=== PATIENT | male | born 1985 | race Caucasian/White ===

== ENCOUNTER 2020-11-27 10:00 | Emergency (ER) | payer BC ==
--- NOTE | 2020-11-27 10:32 | EDM.PDOC ---
ED HPI GENERAL MEDICAL PROBLEM - General Chief Complaint: Chest Pain Stated Complaint: BURNING IN CHEST Time Seen by Provider: 11/27/20 10:20 Source of Information: Reports: Patient History Limitations: Reports: No Limitations - History of Present Illness INITIAL COMMENTS - FREE TEXT/NARRATIVE: 35 year old male with PMH of HTN, and hyperlipidemia presents to ED with chest pain/burning that started around 0900 while sitting in his car. 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 He states he started feeling flushed after breakfast, he is concerned that he is allergic to ketchup. CP is now resolved, denies any fever, chills, cough, N/V/D, SOB, radiation of the pain. Onset: Today Location: Reports: Chest Quality: Reports: Burning Severity: Mild Improves with: Reports: None Worsens with: Reports: None Associated Symptoms: Reports: No Other Symptoms Treatments ASSISTANT MANAGER/EMBALMER: Reports: Aspirin - Related Data Allergies Allergy/AdvReac Type Severity Reaction Status Date / Time No Known Allergies Allergy Verified 11/27/20 10:36 ED ROS GENERAL - Review of Systems Review Of Systems: See Below Constitutional: Reports: No Symptoms HEENT: Reports: No Symptoms Respiratory: Reports: No Symptoms Cardiovascular: Reports: Chest Pain Endocrine: Reports: No Symptoms GI/Abdominal: Reports: No Symptoms : Reports: No Symptoms Musculoskeletal: Reports: No Symptoms Neurological: Reports: No Symptoms Psychiatric: Reports: No Symptoms Hematologic/Lymphatic: Reports: No Symptoms Immunologic: Reports: No Symptoms ED EXAM, GENERAL - Physical Exam Exam: See Below Exam Limited By: No Limitations General Appearance: Alert, No Apparent Distress Eye Exam: Bilateral Eye: Abnormal EOM, Normal Inspection, PERRL Ears: Normal External Exam, Normal Canal, Hearing Grossly Normal, Normal TMs Ear Exam: Bilateral Ear: TM normal Nose: Normal Inspection, Normal Mucosa Throat/Mouth: Normal Inspection, Normal Lips, Normal Teeth, Normal Gums, Normal Oropharynx, Normal Voice Head: Atraumatic Neck: Normal Inspection, Non-Tender, Full Range of Motion Respiratory/Chest: No Respiratory Distress, Lungs Clear, Normal Breath Sounds, No Accessory Muscle Use, Chest Non-Tender Cardiovascular: Normal Peripheral Pulses, Regular Rate, Rhythm, No Edema, No JVD, No Murmur Peripheral Pulses: 3+: Carotid (L), Carotid (R), Radial (L), Radial (R), Dorsalis Pedis (L), Dorsalis Pedis (R) GI/Abdominal: Normal Bowel Sounds, Soft, Non-Tender, No Distention, No Mass Back Exam: Normal Inspection, Full Range of Motion. No: CVA Tenderness (R), CVA Tenderness (L) Extremities: Normal Inspection, Normal Range of Motion, Non-Tender, No Pedal Edema, Normal Capillary Refill Neurological: Alert, Oriented, Normal Cognition, No Motor/Sensory Deficits Psychiatric: Normal Affect, Normal Mood Skin Exam: Warm, Dry, Intact Lymphatic: No Adenopathy Course - Orders/Labs/Meds Orders: Active Orders 24 hr Category Date Time Status EKG Documentation Completion [RC] ASDIRECTED Care 11/27/20 10:26 Ordered EKG 12 Lead [EK] Routine Ther 11/27/20 10:25 Ordered Labs: Laboratory Tests 11/27/20 11/27/20 Range/Units 10:25 10:25 WBC 5.8 (4.0-11.0) K/uL RBC 4.57 (4.50-6.50) M/uL Hgb 15.0 (13.0-18.0) g/dL Hct 44.6 (40.0-54.0) % MCV 98 H (76-96) fL MCH 32.8 H (27.0-32.0) pg MCHC 33.6 (31.0-35.0) g/dL RDW 12.4 (11.0-16.0) % Plt Count 187 (150-400) K/uL MPV 10.7 H (6.0-10.0) fL Neut % (Auto) 58.0 (45.0-70.0) % Lymph % (Auto) 26.1 (20.0-40.0) % Dent % (Auto) 12.3 H (3.0-10.0) % Eos % (Auto) 2.9 (1.0-5.0) % Baso % (Auto) 0.7 H (0.0-0.5) % Neut # (Auto) 3.35 (2.00-7.50) K/uL Lymph # (Auto) 1.51 (1.50-4.00) K/uL Dent # (Auto) 0.71 (0.20-0.80) K/uL Eos # (Auto) 0.17 (0.04-0.40) K/uL Baso # (Auto) 0.04 (0.02-0.10) K/uL Sodium 139 (136-145) mmol/L Potassium 4.2 (3.5-5.1) mmol/L Chloride 101 (98-107) mmol/L Carbon Dioxide 26.9 (21.0-32.0) mmol/L Anion Gap 15.3 H (5.0-15.0) mmol/L BUN 19 (8-26) mg/dL Creatinine 1.22 (0.70-1.30) mg/dL Est Cr Clr Drug Dosing TNP Estimated GFR (MDRD) > 60 (>60) MLS/MIN BUN/Creatinine Ratio 15.6 (6-25) Glucose 104 H (74-100) mg/dL Calcium 8.4 L (8.5-10.1) mg/dL Total Bilirubin 0.5 (0.0-1.0) mg/dL AST 60 H (15-37) U/L ALT 99 H (12-78) U/L Alkaline Phosphatase 61 (46-116) U/L Troponin I < 0.017 (0.000-0.060) ng/mL Total Protein 7.6 (6.4-8.2) g/dL Albumin 4.1 (3.4-5.0) g/dL Globulin 3.5 (2.2-4.2) g/dL Albumin/Globulin Ratio 1.2 (0.8-2.0) Departure - Departure Time of Disposition: 11:36 Disposition: Home, Self-Care 01 Condition: Good Clinical Impression: Chest pain Qualifiers: Chest pain type: unspecified Qualified Code(s): R07.9 - Chest pain, unspecified Instructions: Nonspecific Chest Pain, Adult Forms: ED Department Discharge Additional Instructions: Please follow up with your PCP to schedule a stress test and recheck your liver tests. Return to ED for any increased or new concerns. - My Orders Last 24 Hours: My Active Orders 11/27/20 10:25 EKG 12 Lead [EK] Routine 11/27/20 10:26 EKG Documentation Completion [RC] ASDIRECTED - Assessment/Plan Last 24 Hours: My Active Orders 11/27/20 10:25 EKG 12 Lead [EK] Routine 11/27/20 10:26 EKG Documentation Completion [RC] ASDIRECTED Plan: Patient would like to leave before another troponin, he will sign out. We recommend that he follow up with his PCP this week to schedule a stress test. He verbalized understanding and all questions were answered.
--- NOTE | 2020-11-27 11:21 | CR ---
DATE OF SERVICE: 11/27/2020 CLINICAL DATA: Chest pain AP chest: No priors. The heart size is normal. The lungs are clear. No pneumothorax. No pleural effusions. No evidence of acute intrathoracic disease. MTDD
== END 2020-11-27 11:47 | disposition home or self-care (01) ==
LOC: LB.ED 10:00
DX: R07.9 Chest pain, unspecified (principal); I10 Essential (primary) hypertension
CPT/HCPCS: 36415; 71045; 80053; 84484; 85025; 93005; 99284; 99285-25

== ENCOUNTER 2024-11-22 13:22 | Emergency (ER) | payer BC ==
[2024-11-22] MEDS ORDERED: Diphtheria/Tetanus Toxoids,Adult (Td) 0.5 ML SDV IM ONE (14:16)
[2024-11-22] MEDS: Diphtheria,Pertussis(Acell),Tetanus Vaccine 0.5 ML Syringe IM ONE (14:30)
== END 2024-11-22 14:35 | disposition home or self-care (01) ==
LOC: LB.ED 13:22
DX: S61.211A Laceration without foreign body of left index finger without damage to nail, initial encounter (principal); W23.1XXA Caught, crushed, jammed, or pinched between stationary objects, initial encounter; Z23 Encounter for immunization
CPT/HCPCS: 90471; 90715; 99282-25

== ENCOUNTER 2025-09-10 08:17 | Emergency (ER) | payer BC ==
[2025-09-10] MEDS ORDERED: Sodium Chloride 0.9% 10 ML Syringe FLUSH PRN ×2 (08:47→09:52)
[2025-09-10 09:30] LABS: BASOPHILS ABSOLUTE AUTO 0.01 K/uL (0.02-0.10); BASOPHILS PERCENT AUTO 0.1 % (0.0-0.5); EOSINOPHILS ABSOLUTE AUTO 0.02 K/uL (0.04-0.40); EOSINOPHILS PERCENT AUTO 0.3 % (1.0-5.0); LYMPHOCYTES ABSOLUTE AUTO 0.45 K/uL (1.50-4.00); LYMPHOCYTES PERCENT AUTO 5.9 % (20.0-40.0); MEAN PLATELET VOLUME 11.8 fL (6.0-10.0); MONOCYTES ABSOLUTE AUTO 0.57 K/uL (0.20-0.80); MONOCYTES PERCENT AUTO 7.5 % (3.0-10.0); NEUTROPHILS ABSOLUTE AUTO 6.58 K/uL (2.00-7.50); NEUTROPHILS PERCENT AUTO 86.2 % (45.0-70.0); PLATELET COUNT,PLT 118 K/uL (150-400); RED BLOOD CELL COUNT 4.20 M/uL (4.50-6.50); RED CELL DISTRIBUTION WIDTH 11.2 % (11.0-16.0); WHITE BLOOD CELL COUNT,WBC 7.6 K/uL (4.0-11.0)
[2025-09-10 09:36] LABS: A/G RATIO 1.0 (0.8-2.0); ALANINE AMINOTRANSFERASE,ALT 243.0 U/L (12-78); ASPARTATE AMNIOTRANSFERASE,AST 411.0 U/L (15-37); BLOOD UREA NITROGEN,BUN 9.0 mg/dL (8-26); CARBON DIOXIDE,CO2 24.2 mmol/L (21.0-32.0); CHOLESTEROL HDL 52.0 mg/dL (40-60); CHOLESTEROL LDL CALCULATED 72.0 mg/dL (0-130); CHOLESTEROL TOTAL 146.0 mg/dL (120-200); CREATININE 1.2 mg/dL (0.70-1.30); EST CRCL DRUG DOSING (CG) 73.1 mL/min; ESTIMATED GFR 78.0 mL/min (>60); GLUCOSE RANDOM 193.0 mg/dL (74-100); POTASSIUM,K 3.4 mmol/L (3.5-5.1); PROTEIN TOTAL,TP 8.2 g/dL (6.4-8.2); TROPONIN I HIGH SENSITIVITY 8.7 pg/ml (<=60.4)
[2025-09-10 09:46] LABS: CHLORIDE,CL 68.0 mmol/L (98-107); SODIUM,NA 107.0 mmol/L (136-145)
[2025-09-10 09:47] LABS: BILIRUBIN TOTAL 3.4 mg/dL (0.0-1.0)
[2025-09-10] MEDS ORDERED: Sodium Chloride 0.9% 50 ML SDV FLUSH ONE (09:53)
[2025-09-10] MEDS ORDERED: Iopamidol 612 MG/ML 100 ML Bottle IV SCH (10:00)
[2025-09-10] MEDS: Magnesium Sulfate 2 GM/50 mL 2 GM in Premix Bag 1 BAG IV ONE (10:07)
[2025-09-10 10:08] LABS: APPEARANCE,URINE CLEAR (CLEAR); GLUCOSE,URINE 500 mg/dL (NEGATIVE); OCCULT BLOOD,URINE LARGE (NEGATIVE)
[2025-09-10 10:18] LABS: EPITHELIAL CELLS,URINE NOT SEEN /HPF
[2025-09-10] MEDS: NS + KCl 20mEq/L 1,000 ML IV SCH (10:23)
[2025-09-10] MEDS: Potassium Chloride 20 MEQ Tab.ER PO ONE (11:31)
[2025-09-10 13:20] LABS: BLOOD UREA NITROGEN,BUN 7.0 mg/dL (8-26); CARBON DIOXIDE,CO2 26.7 mmol/L (21.0-32.0); CREATININE 1.14 mg/dL (0.70-1.30); EST CRCL DRUG DOSING (CG) 76.95 mL/min; ESTIMATED GFR 83.0 mL/min (>60); GLUCOSE RANDOM 138.0 mg/dL (74-100); POTASSIUM,K 3.3 mmol/L (3.5-5.1)
[2025-09-10 13:23] LABS: SODIUM,NA 109.0 mmol/L (136-145)
[2025-09-10 13:25] LABS: CHLORIDE,CL 72.0 mmol/L (98-107)
[2025-09-12 13:29] LABS: URINE OSMOLALITY 397 mOsm/kg (50-800)
[2025-09-12 13:35] LABS: OSMOLALITY 233 mOsm/kg (280-303)
== END 2025-09-10 14:30 ==
LOC: LB.ED 08:17
DX: E87.1 Hypo-osmolality and hyponatremia (principal); E78.00 Pure hypercholesterolemia, unspecified; I10 Essential (primary) hypertension; Z79.899 Other long term (current) drug therapy
CPT/HCPCS: 36415; 71046; 80048; 80053; 80061; 81001; 83036; 83690; 83735; 83930; 83935; 84443; 84484; 85025; 93005; 96365; 96366; 96367; 99285; A0425; A9270; J3475; J3480; J7030; 71045; 93010